=== PATIENT | male | born 1990 | race Caucasian/White ===

== ENCOUNTER 2020-05-28 12:05 | Emergency (ER) | payer BC, SELFPAY ==
[2020-05-28 12:48] VITALS: BP 166/107; PULSE 73; RESP 16; TEMP 36.3; O2SAT 98
--- NOTE | 2020-05-28 13:29 | ED.SKABFB ---
HPI - Skin/Abscess/Foreign Bdy General Chief complaint: Skin/Abscess/Foreign Body Stated complaint: rash on back and ears Time Seen by Provider: 05/28/20 13:14 Source: patient and RN notes reviewed Mode of arrival: ambulatory Limitations: no limitations History of Present Illness HPI narrative: Patient presents today with a 4-day history of pruritic rash to bilateral antecubital fossa, bilateral cheeks and ears. States the rash waxes and wanes, but is not really improving. 1 week ago he was out walking in the [place], but cannot pinpoint anything that he came into contact with specifically. He has tried several [id number] treatments included Susana rest and hydrocortisone, which help symptoms for short periods of time. He is concerned because now his is developing a similar rash. MD complaint: rash Related Data Allergies Allergy/AdvReac Type Severity Reaction Status Date / Time No Known Allergies Allergy Verified 05/28/20 12:41 Review of Systems Review of Systems: Narrative: CONSTITUTIONAL: Denies body aches, fever, chills, or sweats. EYES: Denies visual changes, redness, or discharge. ENT: Denies rhinorrhea, congestion, sore throat, or otalgia. CARDIOVASCULAR: Denies chest pain, palpitations, or edema. RESPIRATORY: Denies cough or dyspnea. GASTROINTESTINAL: Denies abdominal pain, nausea, vomiting, or diarrhea. GENITOURINARY: Denies dysuria or hematuria. SKIN: + Pruritic rash MUSCULOSKELETAL: Denies back pain, joint pain, or myalgia. NEUROLOGIC: Denies headache, numbness, tingling, or weakness. PSYCH: Denies depression or anxiety. PMFSH Comments At time of signature, I have reviewed and agree with nursing past medical, surgical, social and family history unless otherwise noted. Please see nursing chart for further information. There is no relevant family history pertinent to the presenting complaint Exam Narrative: Exam Narrative: GENERAL: Well-appearing, well-nourished, and in no acute distress. HEAD: Normocephalic, atraumatic. EYES: EOMI. No redness or drainage. Conjunctivae normal. ENT: Mucous membranes pink and moist. NECK: Normal AROM. CHEST: No respiratory distress. EXTREMITIES: Normal range of motion. No edema. SKIN: Warm, dry. Capillary refill normal. Normal skin turgor. Patch of slightly erythematous papular rash to the right and left antecubital fossa, right greater than left as well as bilateral ears, and faintly to the bilateral cheeks. No crusting or signs of bacterial infection. NEURO: No focal deficits. Alert and oriented x3. Gait steady. PSYCH: Normal affect. No signs of depression or anxiety. Course Vital Signs Vital signs: Vital Signs Temperature 97.4 F L 05/28/20 12:48 Pulse Rate 73 05/28/20 12:48 Respiratory Rate 16 05/28/20 12:48 Blood Pressure 166/107 H 05/28/20 12:48 Pulse Oximetry 98 05/28/20 12:48 Temperature 97.4 F L 05/28/20 12:48 Pulse Rate 73 05/28/20 12:48 Respiratory Rate 16 05/28/20 12:48 Blood Pressure 166/107 H 05/28/20 12:48 Pulse Oximetry 98 05/28/20 12:48 Reviewed. Pt has been instructed to follow up with his PCP regarding his elevated blood pressure today. MDM - Skin/Abscess/Foreign Bdy Differential Diagnosis Differential diagnosis: Likely abscess of skin or subcutaneous tissue, viral exanthem, urticaria, allergic reaction to drug, cellulitis, eczema, insect bites, impetigo and contact dermatitis Critical Care Time Critical Care Time Critical Care Time: No Discharge Plan Discharge Clinical Impression: Contact dermatitis Qualifiers: Contact dermatitis type: unspecified Contact dermatitis trigger: unspecified trigger Qualified Code(s): L25.9 - Unspecified contact dermatitis, unspecified cause Patient Disposition: Home, Self-Care Condition: Stable Instructions: Contact Dermatitis (DC) Additional Instructions: Please take the prednisone as directed, starting tomorrow morning. Use the triamcinolone tonight on
== END 2020-05-28 13:34 | disposition home or self-care (01) ==
PROVIDERS: Emergency Provider Nurse Practitioner; PCP Internal Medicine
DX: L25.9 Unspecified contact dermatitis, unspecified cause (principal)
CPT/HCPCS: 99213; G0463

== ENCOUNTER 2023-02-01 10:03 | Outpatient (CLI) | payer BC, SELFPAY ==
[2023-02-01 11:25] LABS: Liquefaction Semen Complete in 30 min. (<30 minutes); Semen Viscosity Not Increased (Not Increa.); Volume Semen 1.5 mL (1.5-5.0)
[2023-02-01 11:26] LABS: Semen Color Opaque (Grey-opaque); Semen Immotility 50 %; Semen Morphology Result to Follow; Semen Non-Progressive Motility 10 %; Semen Progressive Motility 40 % (>32); Semen Total Motility 50 (>40% (PM+NP)); Sperm Count 37.9 Mil/mL (60-150 million/mL)
[2023-02-04 23:41] LABS: Fructose, Semen 172 mg/dL (150-600)
== END 2023-02-01 10:04 | disposition home or self-care (01) ==
PROVIDERS: PCP Obstetrics & Gynecology; Visit Provider Obstetrics & Gynecology
DX: Z31.41 Encounter for fertility testing (principal)
CPT/HCPCS: 82757; 88160; 89320